=== PATIENT | female | born 1965 | race Caucasian/White ===

== ENCOUNTER 2021-04-08 13:02 | Outpatient (CLI) | payer BC, SELFPAY ==
--- NOTE | 2021-04-08 13:12 | CT_ITS ---
WS: [id number] CT scan of the chest without IV contrast, additional two-dimensional coronal and sagittal reconstruct ion was performed. 04/08/2021 Clinical Data: PULMONARY NODULE Comparison: None. DLP: 618.[address] scans at [facility] use at least one of these dose optimization techniques: automated e xposure control; mA and/or kV adjustment per patient size (includes targeted exams where dose is matc hed to clinical indication); or iterative reconstruction. Findings: No nodules, masses or effusions are seen. The heart size is normal with no pericardial effusion. The pulmonary arterial system and thoracic aorta demonstrate no abnormalities or dilatations. No pneumoni a or pneumothorax is seen. The trachea bifurcates normally into the bronchi. There is no axillary or significant mediastinal adenopathy. The upper abdomen shows no abnormalities CT/CT chest wo con [id number] Impression: 1. Negative for lung nodules. 2. Negative for acute cardiopulmonary disease.
== END 2021-04-08 13:03 | disposition home or self-care (01) ==
PROVIDERS: PCP Family Medicine; Visit Provider Family Medicine
DX: R91.1 Solitary pulmonary nodule (principal); I11.0 Hypertensive heart disease with heart failure; I50.9 Heart failure, unspecified; I48.91 Unspecified atrial fibrillation; F17.200 Nicotine dependence, unspecified, uncomplicated
CPT/HCPCS: 71250